=== PATIENT | female | born 1985 | race Caucasian/White ===

== ENCOUNTER 2019-02-19 01:45 | Emergency (ER) | payer OTHER ==
[~2019-02-19] VITALS: Ht 180.3 cm; Wt 94.0 kg
[2019-02-19] MEDS ORDERED: PRENATA3 PO (02:18)
[2019-02-19 03:19] VITALS: BP 128/71
== END 2019-02-19 03:14 | disposition home or self-care (01) ==
LOC: ED 01:45
DX: S70.361A Insect bite (nonvenomous), right thigh, initial encounter (principal); W57.XXXA Bitten or stung by nonvenomous insect and other nonvenomous arthropods, initial encounter; Y92.008 Other place in unspecified non-institutional (private) residence as the place of occurrence of the external cause; Z33.1 Pregnant state, incidental